=== PATIENT | male | born 1950 | race Caucasian/White ===

== ENCOUNTER → 2018-01-16 15:50 | Outpatient (CLI) | payer MEDICARE, OTHER, SELFPAY ==
--- NOTE | 2018-01-16 16:03 | RAD_ITS ---
STUDY: X-RAY - LUMBAR SPINE REASON FOR EXAM: Male, 67 years old. Lower back pain. TECHNIQUE: 5 view(s) of the lumbar spine were obtained. COMPARISON: None FINDINGS: There is straightening of the normal lumbar lordosis. There is no substantial scoliosis. There is a normal alignment of the vertebrae. There is multilevel endplate spondylosis of the lumbar vertebrae. There is multi-level degenerative disc disease with multi-level disc space narrowing. This is most marked at L5-S1. There is no evidence of acute fracture or loss of vertebral axial height. There is atherosclerotic calcification of the abdominal aorta without a demonstrated aneurysm. RAD/L/S Spine Min 4 Views IMPRESSION: Straightened lordosis with degenerative changes of the lumbar spine. Electronically Signed: Issac Johnson DO at 23:52 EST Tel [phone], Service support ,
== END ==
PROVIDERS: Family Provider Family Medicine; PCP Family Medicine; Referring Provider Nurse Practitioner Family; Visit Provider Nurse Practitioner Family
DX: M47.896 Other spondylosis, lumbar region (principal); M51.36 Other intervertebral disc degeneration, lumbar region; M48.061 Spinal stenosis, lumbar region without neurogenic claudication
CPT/HCPCS: 72110

== ENCOUNTER → 2018-03-20 17:02 | Outpatient (CLI) | payer MEDICARE, OTHER, SELFPAY ==
[2018-03-18 13:53] LABS: BUN 13 mg/dL (7-18); EST Glomerular Filtration Rate 90 mL/min (>60); Est Glom Filt Rate - Afr Amer 109 mL/min (>60)
--- NOTE | 2018-03-20 17:07 | MRI_ITS ---
STUDY: MRI LUMBAR SPINE WITH AND WITHOUT CONTRAST REASON FOR EXAM: Male, 67 years old. Low back pain and bilateral leg pain for 2 years with previous lumbar surgery 20 years ago TECHNIQUE: Standardized fat and water weighted pulse sequences were obtained in the sagittal and axial planes. 10 ml of Gadavist contrast material was administered for the contrast portion of the examination. COMPARISON: None FINDINGS: T12-L1: Normal endplates. Normal disc height, hydration and morphology. Normal bilateral facet joints. Normal central canal and bilateral lateral recesses. Normal bilateral intervertebral neural foramina. Normal lumbar lordosis. There is no substantial scoliosis. Normal conus medullaris that terminates at the L1 level. L1-2: Bulging annulus without compressive sequelae. L2-3: Bulging annulus and bilateral facet hypertrophy with mild central canal stenosis. L3-4: Bulging annulus and bilateral facet hypertrophy with moderate central canal and mild bilateral foraminal stenoses. L4-5: Bulging annulus and bilateral facet hypertrophy with mild central canal and moderate bilateral foraminal stenoses. L5-S1: Disc space narrowing and desiccation with discogenic endplate changes and anterior osteophytes. Right laminectomy. Bulging annulus and broad central disc protrusion with moderate to severe bilateral foraminal stenoses. Normal visualized sacral ala. Normal visualized paraspinous soft tissue structures. MRI/Spine Lumbar W/WO Contrast IMPRESSION: Multilevel degenerative disease and postoperative change as described. Moderate central canal stenosis at L3-4. Moderate to severe bilateral foraminal stenoses at L5-S1. Electronically Signed: Hugo Ashton MD at 0:06 EST Tel , Service support ,
== END ==
PROVIDERS: Family Provider Family Medicine; PCP Family Medicine; Referring Provider Nurse Practitioner Family; Visit Provider Nurse Practitioner Family
DX: M46.96 Unspecified inflammatory spondylopathy, lumbar region (principal); M51.37 Other intervertebral disc degeneration, lumbosacral region; M96.1 Postlaminectomy syndrome, not elsewhere classified; M54.17 Radiculopathy, lumbosacral region; M47.817 Spondylosis without myelopathy or radiculopathy, lumbosacral region; M48.07 Spinal stenosis, lumbosacral region
CPT/HCPCS: 36415; 72158; 82565; 84520; A9585

== ENCOUNTER 2018-03-23 10:16 | Emergency (ER) | payer MEDICARE, OTHER, SELFPAY ==
[2018-03-23] VITALS (7 sets, daily range): BP systolic 154–188; BP diastolic 50–77; PULSE 74–82; RESP 16–22; TEMP 36.6–36.9; O2SAT 94–99; BMI 30.9
--- NOTE | 2018-03-23 10:35 | RAD_ITS ---
STUDY: X-RAY CHEST REASON FOR EXAM: Male, 67 years old. Dyspnea. Shortness of breath. TECHNIQUE: 2 frontal portable views of the chest were obtained. COMPARISON: None. FINDINGS: The lungs are clear and expanded. There is no demonstrated pleural abnormality. Normal size heart. Normal mediastinum and debi. Normal visualized pulmonary arteries. Normal visualized aortic arch and descending thoracic aorta. Normal visualized thoracic spine. Normal visualized ribs, clavicles, and shoulders. There is no demonstrated abnormality of the visualized soft tissue structures of the upper abdomen. RAD/Chest 1 View (Portable) IMPRESSION: Normal x-ray examination of the chest. Electronically Signed: Capo Sibley, at 11:35 EST Tel , Service support ,
--- NOTE | 2018-03-23 10:35 | EKG12_ITS ---
Test Reason : Blood Pressure : / mmHG Vent. Rate : 077 BPM Atrial Rate : 077 BPM P-R Int : 132 ms QRS Dur : 100 ms QT Int : 422 ms P-R-T Axes : 061 045 031 degrees QTc Int : 477 ms Normal sinus rhythm Nonspecific ST and T wave abnormality Prolonged QT Abnormal ECG Confirmed by DONNIE MARCELINO, CASS ([id number]), market editor SONIYA ESCAMILLA ([id number] on 03/26/2018 4:43:46 PM Referred By: Ariana Talbot Confirmed By:CASS FIELDS MD
--- NOTE | 2018-03-23 10:43 | ED.VISSUMM ---
- ER Visit Summary Date of Service: 03/23/18 Chief Complaint: [] Numb all over short of breath upset with who has cancer and dying History of Present Illness: The patient is a 67 M [] patient reports he woke in his usual state of health he indicates his who has what sounds like terminal cancer had a very difficult morning he feels that she deteriorated suddenly and that she is dying he try to address her and care for her he became emotionally upset over her current status indicates the numbness involving his entire body intensified he felt the sense of shortness of breath he called paramedics and was brought to the hospital for evaluation his vital signs were 140/80 pulse ox 99% afebrile he has hypertension is well controlled, he has no history of CO PE or DVT he was not ill when he woke, he was not numb until he encountered the emotional status as above related to the he has no history of stroke seizure or TIA, he reports he is feeling better now but is upset about the status of his was left with other caretakers Physical Examination: [] Vital signs are as above General, no distress resting comfortably HEENT is generally unremarkable The neck is supple no adenopathy Cardiovascular, regular rate and rhythm Lungs, clear bilateral Abdomen, soft nontender Extremities, no clubbing cyanosis or edema Neurologic, awake alert answering questions appropriately moving all 4 extremities, the patient is quite emotionally upset he is extremely concerned about the status of his we have explained to him that if he is with other caretakers at this time Test Results: [] Emergency Department Course and Treatment: [] His age and given all the above at this time there is no signs of a stroke CO PE or DVT his physical exam is unremarkable he complains of whole body numbness from his head to every part of his body but his neurologic and physical exam unremarkable his NIH is 0 at this time will obtain screening labs IV fluids IV Ativan and will reassess, his EKG shows a sinus rhythm nothing acute Treatment Plan: [] Patient screening labs EKG chest x-ray are all generally unremarkable see those reports, reevaluation is resting comfortably the bed he is with his neighbor he states he feels much better we discussed inpatient versus outpatient management he states again he feels much better he wants to go home he understands exact etiology of all the above is unclear, we discussed the need for anxiolytics I explained to him if those were necessary should be prescribed by his outpatient providers not the emergency department, I explained we do understand the situational emotional stress he is under related to the 's condition he has family who will be able to help him with the above and he will return for change in symptoms, but again he indicates that due to the 's condition he is feeling better he wants to go home to be with his Disposition: [] Home stable improved Impression: [] Nonspecific diffuse numbness sensation resolved, nonspecific dyspnea resolved, situational stress related to condition of This note was generated with [employer] software. It may contain incorrect words, spelling, and punctuation that were not noted in review of the chart prior to signing ED Disposition - Plan for ED Patient: Chief Complaint: Shortness of Breath Referrals: Betty Garcia [Primary Care Provider] -
[2018-03-23] MEDS: Ipratropium/Albuterol Sulfate 3 ML AMPUL.NEB INHALATION (11:01)
[2018-03-23] MEDS: LORazepam 2 MG/ML Syringe 0.5 MG IV (11:03)
[2018-03-23 11:08] LABS: Absolute Neutrophil Count 4.5 X10^3/uL (2.0-7.7); Basophil# 0.06 X10^3/uL; Basophil% 0.9 % (0-1); Eosinophil# 0.08 X10^3/uL; Eosinophils% 1.2 % (0-5); Hematocrit 49.4 % (40-54); Hemoglobin 17.4 g/dl (13.0-16.5); Mean Corp Hgb Conc 35.2 g/gl (32-36); Mean Corpuscular Hgb 36.6 pg (27.0-32.0); Mean Platelet Vol. 11.9 fl (6.2-12.0); Monocyte# 0.46 X10^3/uL; Monocyte% 6.8 % (0-10); Neutrophil # 4.45 X10^3/uL (2.7-7.7); Neutrophil % 65.4 % (47-70); Platelet Count 199 K/mm3 (150-450); RBC Distribution Width CV 13.6 % (11.6-14.6); Red Blood Count 4.75 M/mm3 (4.6-6.2); White Blood Count 6.8 K/mm3 (4.4-11.0)
[2018-03-23 11:09] LABS: POSITIVE COUNT NO; POSITIVE DIFFERENTIAL NO; POSITIVE MORPHOLOGY NO
[2018-03-23 11:10] LABS: D-Dimer Quantitative (DVT/PE) 0.32 FEU/ug/m (0.27-0.49)
[2018-03-23 11:32] LABS: BNP,B-Type NATRIURETIC PEPTIDE 23.1 pg/mL (0-100)
[2018-03-23 11:34] LABS: Anion Gap 15 (5-15); BUN 10 mg/dL (7-18); BUN/Creat Ratio 9.7 RATIO (10-20); Chloride 99 mmol/L (98-107); Creatinine, Serum 1.03 mg/dL (0.70-1.30); EST Glomerular Filtration Rate 77 mL/min (>60); Est Glom Filt Rate - Afr Amer 93 mL/min (>60); Estimated Creatinine Clearance 78.48 ml/min; Glucose 98 mg/dL (74-106); Potassium 3.1 mmol/L (3.5-5.1); Sodium Level 138 mmol/L (136-145)
--- NOTE | 2018-03-23 12:24 | ED.DEP ---
ED Disposition - Plan for ED Patient: Chief Complaint: Shortness of Breath Instructions: ED Dyspnea Shortness of Breath Referrals: Betty Garcia [Primary Care Provider] -
== END 2018-03-23 12:41 | disposition home or self-care (01) ==
LOC: ED 11:34
PROVIDERS: Emergency Provider Emergency Medicine; Family Provider Family Medicine; PCP Family Medicine
DX: F43.0 Acute stress reaction (principal); R20.0 Anesthesia of skin; R06.02 Shortness of breath; I10 Essential (primary) hypertension; Z79.899 Other long term (current) drug therapy
CPT/HCPCS: 71045; 80048; 83880; 84484; 85025; 85379; 93005; 94640; 99285; J7030; A4216